=== PATIENT | male | born 1945 | race Caucasian/White ===

== ENCOUNTER 2024-11-18 09:36 | Inpatient (IN) | payer OTHER ==
[~2024-11-18] VITALS: Ht 182.9 cm; Wt 51.3 kg
[2024-11-18] MEDS: ALBUTEROL FS 2.5 MG/3 ML VIAL.NEB NEB ONE (10:00)
[2024-11-18] MEDS: VANCOMYCIN 1 GM in IV D5W 250 ML IV ONE (10:00)
[2024-11-18] MEDS: IPRATROPIUM NEB FS 0.5 MG/2.5 ML AMPUL.NEB NEB ONE (10:00)
[2024-11-18] MEDS ORDERED: IPRATROPIUM NEB FS 0.5 MG/2.5 ML AMPUL.NEB ONE (10:02)
[2024-11-18] MEDS ORDERED: ALBUTEROL FS 2.5 MG/0.5 ML VIAL.NEB ONE (10:02)
[2024-11-18] MEDS ORDERED: methylPREDNISolone SOD SUCC 125 MG/2ML VIAL ONE (10:05)
[2024-11-18] MEDS: methylPREDNISolone SOD SUCC 125 MG/2ML VIAL IV ONE (10:10)
[2024-11-18] MEDS: IV NS 0.9% 1,000 ML BAG IV ONE (10:10)
[2024-11-18 10:15] VITALS: O2SAT 90
[2024-11-18] MEDS: CEFEPIME 1 GM in IV D5W 50 ML IV ONE (10:15)
[2024-11-18 10:30] VITALS: O2SAT 90
[2024-11-18] MEDS ORDERED: LATA7.5D EACHEYE (10:47)
[2024-11-18] MEDS ORDERED: BUDE0.5A4 IH (10:47)
[2024-11-18] MEDS ORDERED: LEVO125T8 PO (10:47)
[2024-11-18] MEDS ORDERED: FOLI0.4T6 PO (10:47)
[2024-11-18] MEDS ORDERED: SODI100037 PO (10:47)
[2024-11-18] MEDS ORDERED: SENN-261 PO (10:47)
[2024-11-18] MEDS ORDERED: FURO-144 PO (10:47)
[2024-11-18] MEDS ORDERED: ASCO-352 PO (10:47)
[2024-11-18] MEDS ORDERED: ACET650S11 RC (10:47)
[2024-11-18] MEDS ORDERED: MAGN400O6 PO (10:47)
[2024-11-18] MEDS ORDERED: GUAI400T90 PO (10:47)
[2024-11-18] MEDS ORDERED: TAMS-12 PO (10:47)
[2024-11-18] MEDS ORDERED: GUAI400T93 PO (10:47)
[2024-11-18] MEDS ORDERED: RIVA10TA PO (10:47)
[2024-11-18] MEDS ORDERED: ALBU2.5V38 IH (10:47)
[2024-11-18] MEDS ORDERED: LOSA50TA39 PO (10:47)
[2024-11-18] MEDS ORDERED: L. A1TAB10 PO (10:47)
[2024-11-18] MEDS ORDERED: BISA10SU11 RC (10:47)
[2024-11-18] MEDS ORDERED: AMIO100T4 PO (10:47)
[2024-11-18] MEDS ORDERED: MELA3TAB41 PO (10:47)
[2024-11-18] MEDS ORDERED: FERR-68 PO (10:47)
[2024-11-18] MEDS ORDERED: NA P133E RC (10:47)
[2024-11-18] MEDS ORDERED: CHOL100043 PO (10:47)
[2024-11-18] MEDS ORDERED: ACET-868 PO (10:47)
[2024-11-18] MEDS ORDERED: PANT40TA2 PO (10:47)
[2024-11-18 10:54] LABS: ABG BASE EXCESS -5.8 mmol/L (-2.0-3.0); ABG PCO2 138.5 mmHg (35.0-48.0); ABG PH 6.924 (7.350-7.450); ABG PO2 146.6 mmHg (83.0-108.0); ABG TOTAL HEMOGLOBIN 9.1 G/dL (13.5-17.5); COHb 0.3 % (0.5-1.5); MetHb 0.5 % (0.0-1.5); O2Hb 96.2 % (94.0-97.0); SITE, ABG RIGHT FEMORAL
[2024-11-18 10:57] LABS: APPEARANCE,URINE CLEAR (CLEAR); BILIRUBIN,URINE NEGATIVE (NEGATIVE); BLOOD, URINE NEGATIVE Ery/uL (NEGATIVE); COLOR,URINE YELLOW (YELLOW); KETONES,URINE TRACE mg/dL (NEGATIVE); LEUKOCYTE ESTERASE ,URINE TRACE (NEGATIVE); NITRITE, URINE NEGATIVE (NEGATIVE); PROTEIN,URINE 1+ mg/dl (NEGATIVE); UGLUCOSE NEGATIVE (NEGATIVE); UROBILINOGEN,URINE 0.2 EU/dL (0.2)
[2024-11-18 11:17] LABS: ADD URINE CULTURE YES; BACTERIA,URINE 1+ /HPF (None Seen); MUCUS,URINE Few /LPF (None Seen); RBC,URINE 0-2 /HPF (0-2); SQUAMOUS EPITHELIAL CELL,UR 0-2 /HPF (None Seen)
[2024-11-18 11:33] LABS: BASOPHILS % (AUTO) 0.1 % (0.0-2.0); EOSINOPHILS % (AUTO) 0.1 % (0.0-6.0); HEMATOCRIT 30 % (39-51); LYMPHOCYTES # (AUTO) 0.5 K/uL (0.8-4.8); LYMPHOCYTES % (AUTO) 6.9 % (20.0-44.0); MEAN CORPUSCULAR HEMOGLOBIN 27 PG (26.0-33.0); MEAN CORPUSCULAR HGB CONC 33 g/dl (31.0-36.0); MEAN CORPUSCULAR VOLUME 80 fL (80-96); MONOCYTES # (AUTO) 0.8 K/uL (0.1-1.30); MONOCYTES % (AUTO) 9.6 % (2.0-12.0); NEUTROPHILS # (AUTO) 6.6 K/uL (1.8-8.9); NEUTROPHILS % (AUTO) 83.3 % (43.0-81.0); PLATELET COUNT (AUTO) 169 K/uL (150-450); RED BLOOD CELL COUNT(AUTO) 3.77 MIL/uL (4.5-6.0); RED CELL DISTRIBUTION WIDTH 25.2 % (11.5-15.0); WHITE BLOOD COUNT (AUTO) 7.9 K/uL (4.3-11.0)
[2024-11-18 11:41] LABS: ALANINE AMINOTRANSFERASE 72 U/L (12-78); ALBUMIN 3.1 g/dL (3.4-5.0); ALKALINE PHOSPHATASE 78 U/L (46-116); ASPARTATE AMINOTRANSFERASE 71 U/L (15-37); BILIRUBIN,DIRECT 0.2 mg/dL (0.0-0.2); BILIRUBIN,TOTAL 0.5 mg/dL (0.2-1.0); CARBON DIOXIDE 32 mmol/L (21-32); CHLORIDE 87 mmol/L (98-107); CREATININE 1.6 mg/dL (0.6-1.3); GLUCOSE 88 mg/dL (74-106); POTASSIUM 4.2 mmol/L (3.5-5.1); SODIUM SERUM 128 mmol/L (136-145); TOTAL PROTEIN, SERUM 6.6 g/dL (6.4-8.2); UREA NITROGEN, BLOOD 21 mg/dL (7-18)
[2024-11-18] MEDS ORDERED: ONDANSETRON HCL/PF 4 MG/2 ML VIAL IVP PRN (12:00)
[2024-11-18] MEDS ORDERED: ACETAMINOPHEN 650 MG/SUPP.RECT RC PRN (12:00)
[2024-11-18 12:12] VITALS: O2SAT 98
[2024-11-18 12:30] VITALS: BP 78/43; TEMP 94.5; O2SAT 98
[2024-11-18] MEDS: SCOPOLAMINE PATCH 1 MG/72HR TD SCH (12:31)
[2024-11-18] MEDS: MORPHINE SULFATE INJ 2 MG/ML DISP.SYRIN IV PRN (12:31)
[2024-11-18] MEDS: LORAZEPAM INJ 2 MG/ML VIAL IV PRN (14:17)
[2024-11-18 14:23] VITALS: O2SAT 96
[2024-11-18 15:35] VITALS: O2SAT 96
[2024-11-18] MEDS ORDERED: KEY,NONCONTROL,TO KEEP IN PYXI 1 EA MC ONE (16:40)
[2024-11-18] MEDS: MORPHINE SULFATE PF DRIP 100 MG in IV D5W 96 ML IV PRN (17:01)
== END 2024-11-18 19:30 | DRG 720 ==
LOC: ER 09:52 → TELE-TD 11:38 → MEDSG1 14:45
PROVIDERS: ADMIT Nurse Practitioner Family; ATTEND Nurse Practitioner Family
DX: A41.9 Sepsis, unspecified organism (principal); J96.21 Acute and chronic respiratory failure with hypoxia; R65.21 Severe sepsis with septic shock; G93.41 Metabolic encephalopathy; E87.29 Other acidosis; J18.9 Pneumonia, unspecified organism; I50.9 Heart failure, unspecified; J44.0 Chronic obstructive pulmonary disease with (acute) lower respiratory infection; E87.1 Hypo-osmolality and hyponatremia; N17.9 Acute kidney failure, unspecified; J96.22 Acute and chronic respiratory failure with hypercapnia; Z20.822 Contact with and (suspected) exposure to COVID-19; Z66 Do not resuscitate; Z51.5 Encounter for palliative care; K21.9 Gastro-esophageal reflux disease without esophagitis; N40.0 Benign prostatic hyperplasia without lower urinary tract symptoms; Z87.440 Personal history of urinary (tract) infections; Z79.890 Hormone replacement therapy; Z79.899 Other long term (current) drug therapy; Z79.01 Long term (current) use of anticoagulants; I48.91 Unspecified atrial fibrillation; Y95 Nosocomial condition; Z79.51 Long term (current) use of inhaled steroids; D64.9 Anemia, unspecified; I12.9 Hypertensive chronic kidney disease with stage 1 through stage 4 chronic kidney disease, or unspecified chronic kidney disease; N18.9 Chronic kidney disease, unspecified
CPT/HCPCS: 36415; 36600; 71045-TC; 80048-TC; 80076-TC; 81001; 82803-TC; 84484-TC; 85025-TC; 87040-TC; 94799-TC; 99082-TC; A4223; G0378; J0692; J2060; J2270; J2274; J2919; J3370; J7030; J7060